=== PATIENT | female | born 2005 | race Caucasian/White ===

== ENCOUNTER → 2025-05-25 | Outpatient (CLI) | payer BC, SELFPAY ==
--- NOTE | 2025-05-25 09:05 | XR_ITS ---
Examination: Abdomen AP single view Technique: AP portable supine abdomen, single view Exam date and time: May 25, 2025, 0908 hours INDICATIONS: Right lower abdominal pain beginning 2 weeks ago. FINDINGS: Nonobstructive bowel gas pattern. Moderate stool throughout the colon No free air IMPRESSION: Nonobstructive bowel gas pattern. No free air. No renal or ureteral calculi Osseous structures intact
--- NOTE | 2025-05-25 09:08 | XR_ITS ---
Examination: Abdomen sonogram, complete Date and time of exam: May, 0 hours INDICATIONS: Onset right upper abdominal pain beginning 1 week ago. Technique: Multiple real-time grayscale transabdominal sonographic images of the abdomen have been obtained. Findings: Normal gallbladder Normal common bile duct 0.4 cm Pancreatic head 1.8 cm Aorta not enlarged Liver 12.3 cm fatty infiltration Normal hepatopetal portal venous flow Patent IVC Right kidney 10.3 cm renal cortex 1.2 cm Left kidney 10.2 cm renal cortex 1.6 cm Spleen 9.6 cm IMPRESSION: Normal gallbladder Normal common bile duct
== END | disposition home or self-care (01) ==
LOC: CDIM 08:36
PROVIDERS: PCP Family Medicine; Referring Provider Family Medicine; Visit Provider Family Medicine
DX: R10.11 Right upper quadrant pain (principal)
CPT/HCPCS: 74018; 76700